=== PATIENT | female | born 1960 | race Caucasian/White ===

== ENCOUNTER 2017-04-10 23:32 | Observation (INO) | payer BC ==
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
[~2017-04-10 23:32] MED LIST: ADDERALL XR20 MG PO; ADDERALL20 MG PO; ADDERALL5 MG PO; AUG875 PO; BUSPAR10 PO; BUSPAR15 M1 PO; BUSPAR5 PO; BYSTOLIC10 MG PO; CLARIT10 PO; D 5000 PO; DIL2TAB PO; ESTRATESHS PO; FIBER GUMMIES PO; FLECAINIDE100 MG PO; FLOVENT110 INH; FORTAMET500 MG PO; HORMONE PELLET SC; LEVOTHYROXIN75 MCG PO; LUNESTA3 MG PO; MIRAPEX250 PO; MIRAPEX5 PO; MOBIC15 MG PO; NEUR300 PO; NEXIUM40 PO; P20 PO; PLAQ200B PO; PR25 PO; PRAVACHOL40 MG PO; PRILOSEC40 MG PO; RITALIN LA30 MG PO; SAVELLA25 MG PO; SYN075 PO; TOPAMAX25 PO; TOPAMAX50 MG PO; TOPXL25 PO; ULTRAM50 PO; VITAMIN D1000 UNI1 PO; XARELTO15 MG PO
[2017-04-11 00:26] LABS: BASOPHILS 0.6 %; BASOPHILS ABSOLUTE 0.02 10/3/uL (0.0-0.16); EOSINOPHILS 2.2 %; EOSINOPHILS ABSOLUTE 0.07 10/3/uL (0.0-0.53); HEMOGLOBIN 13.6 g/dL (12.0-16.0); LYMPHOCYTES 33.9 %; LYMPHOCYTES ABSOLUTE 1.06 10/3/uL (0.67-4.30); MEAN CORPUS HGB CONC 34.9 g/dL (32.0-36.0); MEAN CORPUSCULAR HEMOGLOB 30.6 pg (26.0-34.0); MEAN CORPUSCULAR VOLUME 87.8 fL (80-100); MEAN PLATELET VOLUME 9.7 fL (9.2-13.0); MONOCYTES 10.9 %; MONOCYTES ABSOLUTE 0.34 10/3/uL (0.21-1.20); NEUTROPHILS 52.4 %; NEUTROPHILS ABSOLUTE 1.64 10/3/uL (2.02-8.40); PLATELET COUNT 178 10/3/uL (150-400); RBC DISTRIBUTION WIDTH 12.1 % (12.0-16.0); RED CELL COUNT 4.44 10/6/uL (4.0-5.6)
[2017-04-11 00:29] LABS: MANUAL DIFF NO %; WHITE BLOOD CELLS 3.1 10/3/uL (4.5-10.5)
[2017-04-11 00:39] LABS: CALCIUM, SERUM 9.1 MG/DL (8.5-10.4); CHEST PAIN PROFILE TAT 0 Hrs 26 Mins; CHLORIDE, SERUM 107 MMOL/L (96-112); CO2 (CARBON DIOXIDE) 35 MMOL/L (24-34); CREATININE 0.92 MG/DL (0.55-1.02); GFR AFRICAN AMERICAN 81 ML/MIN (>=60); GFR NON AFRICAN AMERICAN 70 ML/MIN (>=60); POTASSIUM, SERUM 4.4 MMOL/L (3.5-5.3); SODIUM, SERUM 145 MMOL/L (135-148); TROPONIN I <0.02 NG/ML (<0.05)
[2017-04-11 00:41] LABS: BUN (BLOOD UREA NITROGEN) 9 MG/DL (6-23); GLUCOSE, SERUM 156 MG/DL (60-99)
[2017-04-11 01:14] LABS: INTERNATIONAL NORMAL RATI 1.4 UNITS (-)
[2017-04-11 01:15] LABS: PARTIAL THROMBO TIME 38.9 SEC (22.5-37.2); PROTIME (NOT ORD) 17.1 SEC (12.0-14.5)
[2017-04-11] MEDS ORDERED: LUNESTA3 MG PO (02:30)
[2017-04-11] MEDS ORDERED: FLECAINIDE50 MG PO (02:31)
[2017-04-11] MEDS ORDERED: BUSPAR15 M1 PO (02:31)
[2017-04-11] MEDS ORDERED: TOPAMAX25 PO (02:31)
[2017-04-11] MEDS ORDERED: NEUR600 PO (02:33)
[2017-04-11] MEDS ORDERED: PLAQ200B PO (02:33)
[2017-04-11] MEDS ORDERED: SYN075 PO (02:34)
[2017-04-11] MEDS ORDERED: PRILOSEC40 MG PO (02:34)
[2017-04-11] MEDS ORDERED: MIRAPEX5 PO (02:34)
[2017-04-11] MEDS ORDERED: TOPXL25 PO (02:34)
[2017-04-11] MEDS ORDERED: ULTRAM50 PO (02:35)
[2017-04-11] MEDS ORDERED: XARELTO20 MG PO (02:37)
[2017-04-11] MEDS ORDERED: ADDERALL20 MG PO (02:37)
[2017-04-11] MEDS ORDERED: PRESERVISION A1 EAC1 PO (02:37)
[2017-04-11] MEDS ORDERED: VITAMIN D1000 UNI1 PO (02:38)
[2017-04-11] MEDS ORDERED: FIBERCON PO (02:39)
[2017-04-11] MEDS ORDERED: PRAVACHOL40 MG PO (02:39)
[2017-04-11] MEDS ORDERED: MIRALAX POWDER1 PKT PO (02:40)
[2017-04-11] MEDS ORDERED: TOPAMAX50 MG PO (02:42)
[2017-04-11] MEDS ORDERED: CLARIT10 PO (02:43)
[2017-04-11] MEDS ORDERED: FLOVENT110 INH (02:44)
[2017-04-11] MEDS ORDERED: ALLERGY INJECTIONS IM/SC (02:44)
== END 2017-04-12 11:36 | disposition home or self-care (01) ==
LOC: ER 23:32 → CDU1 04-11 02:19 → CDU2 04-11 02:51
PROVIDERS: Emergency Medicine
DX: R07.89 Other chest pain (principal); E78.5 Hyperlipidemia, unspecified; M79.7 Fibromyalgia; G47.30 Sleep apnea, unspecified; E03.9 Hypothyroidism, unspecified; F41.0 Panic disorder [episodic paroxysmal anxiety]; E11.43 Type 2 diabetes mellitus with diabetic autonomic (poly)neuropathy; K31.84 Gastroparesis; G25.81 Restless legs syndrome; Z99.89 Dependence on other enabling machines and devices; Z86.711 Personal history of pulmonary embolism; Z82.49 Family history of ischemic heart disease and other diseases of the circulatory system; Z90.49 Acquired absence of other specified parts of digestive tract; Z90.710 Acquired absence of both cervix and uterus; Z98.890 Other specified postprocedural states; Z88.2 Allergy status to sulfonamides; Z88.5 Allergy status to narcotic agent; Z79.52 Long term (current) use of systemic steroids; Z79.899 Other long term (current) drug therapy; Z90.89 Acquired absence of other organs
CPT/HCPCS: 71275; 78452; 80048; 83735; 84484; 85025; 85610; 85730; 93005; 93017; 93971; 96374; 96376; 99285; A9270-GY; A9502; G0378; Q9967

== ENCOUNTER 2017-04-25 13:24 | Day surgery (SDC) | payer BC ==
--- NOTE | ~2017-04-25 | EGD ---
EGD REPORT [facility] [address] [place] [address] NAME: GAVIOTA LUEVANO : 62 STATUS : REG [facility] PAT#: [id number] AGE: 57 ADM/REG DATE : 04/25/17 MR#: [id number] REPORT SERV DATE: 04/25/17 DICTATED BY: KADE LOYOLA DATE: 04/25/17 REPORT STATUS : Draft TRANSCRIBED BY: [facility] DATE: 04/25/17 Endoscopy Center Patient Name: Gaviota Luevano Date of : 1960 Attending MD: KITTY LOYOLA MD Procedure Date No Time: 04/25/2017 Procedure: Colonoscopy Indications: Pelvic pain, Lower abdominal pain Referring MD: Julian Carlin III, MD, CHACHA DOAN Medicines: See the Anesthesia note for documentation of the administered medications Complications: No immediate complications. Estimated blood loss: None. Procedure: Pre-Anesthesia Assessment: - ASA Grade Assessment: III - A patient with severe systemic disease. - Prior to the procedure, a History and Physical was performed, and patient medications and allergies were reviewed. The patient's tolerance of previous anesthesia was also reviewed. The risks and benefits of the procedure and the sedation options and risks were discussed with the patient. All questions were answered, and informed consent was obtained. Prior Anticoagulants: The patient has taken Xarelto (rivaroxaban), last dose was 3 days prior to procedure. After reviewing the risks and benefits, the patient was deemed in satisfactory condition to undergo the procedure. After I obtained informed consent, the scope was passed under direct vision. Throughout the procedure, the patient's blood pressure, pulse, and oxygen saturations were monitored continuously. The PCF [id number] [id number] was introduced through the anus and advanced to the terminal ileum. The ileocecal valve, appendiceal orifice, terminal ileum and rectum were photographed. The entire colon was examined. The colonoscopy was performed without difficulty. The patient tolerated the procedure well. The quality of the bowel preparation was adequate. Findings: The perianal and digital rectal examinations were normal. The terminal ileum appeared normal. A few medium-mouthed diverticula were found in the entire colon. Non-bleeding internal hemorrhoids were found during retroflexion and were Grade I (internal hemorrhoids that do not prolapse). No other significant abnormalities were identified in a careful EGD REPORT [address] [address] NAME: GAVIOTA LUEVANO : 62 STATUS : REG [facility]#: [id number] AGE: 57 ADM/REG DATE : 04/25/17 MR#: [id number] REPORT SERV DATE: 04/25/17 DICTATED BY: KADE LOYOLA DATE: 04/25/17 REPORT STATUS : Draft TRANSCRIBED BY: [employer] DATE: 04/25/17 examination of the remainder of the colon. Impression: - The examined portion of the ileum was normal. - Diverticulosis in the entire examined colon. - Non-bleeding internal hemorrhoids. Recommendation: - Patient has a contact number available for emergencies. The signs and symptoms of potential delayed complications were discussed with the patient. Return to normal activities tomorrow. Written discharge instructions were provided to the patient. - High fiber diet indefinitely. - Discharge patient to home. - Continue present medications. - Repeat colonoscopy in 10 years for surveillance. - Please restart your Xarelto today Procedure Code(s): --- Professional --- 90265, Colonoscopy, flexible, proximal to splenic flexure; diagnostic, with or without collection of specimen(s) by brushing or washing, with or without colon decompression (separate procedure) Diagnosis Code(s): --- Professional --- K64.0, First degree hemorrhoids K57.30, Diverticulosis of large intestine without perforation or abscess without bleeding R10.2, Pelvic and perineal pain R10.30, Lower abdominal pain, unspecified CPT copyright 2013 [employer]. All rights reserved. The codes documented in this report are preliminary and upon acid patroller review may be revised to meet current compliance requirements. KITTY LOYOLA MD 04/25/2017 4:02 PM This report has been signed electronically. Number of Addenda: 0 Note Initiated On: 04/25/2017 3:23 PM Scope Withdrawal Time 0 hours 7 minutes 12 seconds [id number] [id number]
--- NOTE | ~2017-04-25 | EGD ---
EGD REPORT [facility] [address] [address] NAME: GAVIOTA LUEVANO : 62 STATUS : REG [facility] [place] PAT#: [id number] AGE: 57 ADM/REG DATE : 04/25/17 MR#: [id number] REPORT SERV DATE: 04/25/17 DICTATED BY: KADE LOYOLA DATE: 04/25/17 REPORT STATUS : Draft [facility]ANS[facility]IBED BY: [facility] DATE: 04/25/17 Endoscopy Center Patient Name: Gaviota Luevano Date of : 1960 Attending MD: KITTY LOYOLA MD Procedure Date No Time: 04/25/2017 Procedure: Upper GI endoscopy Indications: Abnormal CT of the GI tract Referring MD: Julian Carlin III, MD, CHACHA DOAN Medicines: See the Anesthesia note for documentation of the administered medications Complications: No immediate complications. Estimated blood loss: None. Procedure: Pre-Anesthesia Assessment: - Prior to the procedure, a History and Physical was performed, and patient medications and allergies were reviewed. The patient's tolerance of previous anesthesia was also reviewed. The risks and benefits of the procedure and the sedation options and risks were discussed with the patient. All questions were answered, and informed consent was obtained. Prior Anticoagulants: The patient has taken Xarelto (rivaroxaban), last dose was 3 days prior to procedure. ASA Grade Assessment: III - A patient with severe systemic disease. After reviewing the risks and benefits, the patient was deemed in satisfactory condition to undergo the procedure. After obtaining informed consent, the endoscope was passed under direct vision. Throughout the procedure, the patient's blood pressure, pulse, and oxygen saturations were monitored continuously. The GIF H190 [id number] was introduced through the mouth, and advanced to the third part of duodenum. The upper GI endoscopy was accomplished without difficulty. The patient tolerated the procedure well. Findings: The examined duodenum was normal. The entire examined stomach was normal. The cardia and gastric fundus were normal on retroflexion. The examined esophagus was normal. There is no endoscopic evidence of esophagitis, inflammation, mucosal abnormalities, stenosis or ulcerations in the entire esophagus. Impression: - Normal examined duodenum. - Normal stomach. EGD REPORT [address] [address] NAME: GAVIOTA LUEVANO : 62 STATUS : REG [facility]#: [id number] AGE: 57 ADM/REG DATE : 04/25/17 MR#: [id number] REPORT SERV DATE: 04/25/17 DICTATED BY: KADE LOYOLA DATE: 04/25/17 REPORT STATUS : Draft TRANSCRIBED BY: [employer] DATE: 04/25/17 - Normal esophagus. Recommendation: - Patient has a contact number available for emergencies. The signs and symptoms of potential delayed complications were discussed with the patient. Return to normal activities tomorrow. Written discharge instructions were provided to the patient. - Regular diet. - Discharge patient to home. - Continue present medications. - Please restart your Xarelto today Procedure Code(s): --- Professional --- 07397, Esophagogastroduodenoscopy, flexible, transoral; diagnostic, including collection of specimen(s) by brushing or washing, when performed (separate procedure) Diagnosis Code(s): --- Professional --- R93.3, Abnormal findings on diagnostic imaging of other parts of digestive tract CPT copyright 2013 [employer]. All rights reserved. The codes documented in this report are preliminary and upon solution analyst review may be revised to meet current compliance requirements. KITTY LOYOLA MD 04/25/2017 3:43 PM This report has been signed electronically. Number of Addenda: 0 Note Initiated On: 04/25/2017 3:29 PM Scope Withdrawal Time 0 hours 0 minutes 0 seconds [id number] [id number]
[~2017-04-25 13:24] MED LIST changes: +ALLERGY INJECTIONS IM/SC; +FIBERCON PO; +FLECAINIDE50 MG PO; +MIRALAX POWDER1 PKT PO; +NEUR600 PO; +PRESERVISION A1 EAC1 PO; +XARELTO20 MG PO
== END 2017-04-25 23:59 | disposition home or self-care (01) ==
LOC: DMU 13:24
PROVIDERS: Internal Medicine Gastroenterology
PROC: 0DJD8ZZ Inspection of Lower Intestinal Tract, Via Natural or Artificial Opening Endoscopic (ICD-10-PCS; principal; 2017-04-25 15:30)
PROC: 0DJ08ZZ Inspection of Upper Intestinal Tract, Via Natural or Artificial Opening Endoscopic (ICD-10-PCS; 2017-04-25 15:30)
DX: K64.0 First degree hemorrhoids (principal); K57.30 Diverticulosis of large intestine without perforation or abscess without bleeding; I10 Essential (primary) hypertension; G47.33 Obstructive sleep apnea (adult) (pediatric); F41.0 Panic disorder [episodic paroxysmal anxiety]; M79.7 Fibromyalgia; E78.00 Pure hypercholesterolemia, unspecified; E03.9 Hypothyroidism, unspecified; K31.84 Gastroparesis; Z90.710 Acquired absence of both cervix and uterus; Z88.2 Allergy status to sulfonamides; Z88.6 Allergy status to analgesic agent; Z88.5 Allergy status to narcotic agent; Z90.49 Acquired absence of other specified parts of digestive tract; Z98.890 Other specified postprocedural states